=== PATIENT | female | born 1975 | race Caucasian/White ===

== ENCOUNTER 2020-03-17 14:14 | Outpatient (CLI) | payer OTHER ==
--- NOTE | 2020-03-17 16:06 | MRI ---
Exam: MRI cervical spine without contrast HISTORY: Cervical radiculitis. Right arm pain.. COMPARISON: None FINDINGS: Appropriate T1 marrow signal intensity of the cervical vertebra. Cervical spine vertebral body heigh t is maintained. No fracture. No significant STIR hyperintensity to suggest vertebral body edema or ligamentous injury. Visualized brain parenchyma, cervicomedullary junction, cervical cord and the upp er thoracic cord have normal size and signal intensity C2-C3: No significant central canal stenosis or significant neural foraminal narrowing C3-C4: No significant central canal stenosis or significant neural foraminal narrowing C4-C5: Minimal broad-based disc bulge contacts the thecal sac. No significant central canal stenosis or significant neural foraminal narrowing C5-C6: No significant central canal stenosis or significant neural foraminal narrowing C6-C7: Broad-based disc bulge minimally indents the thecal sac. No significant central canal stenosis or significant neural foraminal narrowing C7-T1: No significant central canal stenosis or significant neural foraminal narrowing IMPRESSION: No significant central canal stenosis or significant neural foraminal narrowing
== END 2020-03-17 14:15 | disposition home or self-care (01) ==
LOC: BICMRI 14:14
PROVIDERS: ATTEND Orthopaedic Surgery Hand Surgery
DX: M54.12 Radiculopathy, cervical region (principal); M48.02 Spinal stenosis, cervical region
CPT/HCPCS: 72141

== ENCOUNTER 2020-10-25 14:43 | Outpatient (CLI) | payer OTHER ==
--- NOTE | 2020-10-25 16:39 | ULT ---
LEFT BREAST ULTRASOUND: History: Follow up nodule seen on outside mammogram dated 10-19-2020. FINDINGS: There is somewhat nodular density demonstrated in the 12 o'clock position on prior outside mammogram dated 10-19-2020. When this mammogram is compared to a prior mammogram dated 08-13-2019 from [facility], however, this asymmetric density appears stable. The 12 o'clock region of the left breast is evaluated. There is some minimal asymmetric echogenic gra nular tissue in this region of the breast which may well account for the mammographic finding. There is no evidence for solid or cystic mass in this region of the breast. BIRADS category 3 - probably benign finding. No ultrasound evidence for solid or cystic mass noted in the 12 o'clock position of the left breast to account for focal asymmetry seen the prior mammogram o f 10-19-2020. The 2D image from 10-19-2020 does not appear significantly changed when compared to the 2D image from 08-13-19 in this region of the breast, so this is stable but since there is some slight differences i n appearance from the prior study, probably related to technique, a 6 month follow up study is recomm ended to include left unilateral diagnostic mammogram and left breast ultrasound for further assessme nt. POS: OFF
== END 2020-10-25 14:44 | disposition home or self-care (01) ==
LOC: BICULT 14:43
PROVIDERS: ATTEND Physician Assistant
DX: N63.20 Unspecified lump in the left breast, unspecified quadrant (principal)

== ENCOUNTER 2021-02-08 16:29 | Outpatient (CLI) | payer OTHER ==
[2021-02-08 17:51] LABS: #Basophils 0.1 10x3/uL (0.0-0.2); #Eosinphils 0.1 10x3/uL (0.0-0.5); #Monocytes 1.1 10x3/uL (0.0-1.1); #Neutrophils 5.7 10x3/uL (1.5-8.4); %Basophils 0.5 % (0.0-2.0); %Eosinophils 1.2 % (0.0-6.0); %Monocytes 10.9 % (0.0-10.0); %Neutrophils 57.1 % (40.0-75.0); Hemoglobin 12.6 g/dL (12.0-15.5); Mean Corpuscular HGB CONC 33.2 g/dL (32.0-36.0); Mean Corpuscular Hemoglobin 30.4 pg (27.0-33.0); Mean Corpuscular Volume 91.3 fl (81.6-98.3); Mean Platelet Volume 11.3 fl (7.4-10.4); Platelet Count 295 10x3/uL (150-450); RBC Distribution Width 12.6 % (11.5-14.5); Red Blood Cell (RBC) Count 4.15 10x6/uL (3.90-5.03)
[2021-02-09 00:55] LABS: SARS-CoV-2 PCR by NAA Not Detected (NotDetected)
== END 2021-02-08 16:30 | disposition home or self-care (01) ==
LOC: LABBT 16:29
PROVIDERS: ATTEND Orthopaedic Surgery Hand Surgery
DX: Z01.812 Encounter for preprocedural laboratory examination (principal); G56.01 Carpal tunnel syndrome, right upper limb; M65.311 Trigger thumb, right thumb
CPT/HCPCS: 85025; 87635; U0003; U0005

== ENCOUNTER 2021-02-11 06:26 | Day surgery (SDC) | payer OTHER ==
[2021-02-09 15:27] VITALS: BMI 24.1
[2021-02-11] MEDS ORDERED: Midazolam HCl 2 mg/2 ml Vial ONE (08:04)
[2021-02-11] MEDS ORDERED: Fentanyl 100 MCG/2 ML VIAL ONE (08:04)
[2021-02-11] MEDS ORDERED: Bupivacaine PF 0.5% 30 ML VIAL ONE (08:09)
[2021-02-11] MEDS ORDERED: Betamet Acet/Betamet Na Ph 30 MG/5 ML VIAL ONE (08:09)
[2021-02-11] MEDS ORDERED: Bacitracin Zinc Ointment 30 gm TUBE ONE (08:09)
[2021-02-11] MEDS ORDERED: Sodium Chloride 0.9% 10 ML ONE (08:16)
[2021-02-11] MEDS ORDERED: Lidocaine 1% PF 5 ML VIAL ONE (08:29)
[2021-02-11] MEDS ORDERED: PROPOFOL 200 MG/20 ML VIAL ONE (08:29)
[2021-02-11] MEDS ORDERED: Ondansetron PF 4 MG/2 ML Vial ONE (08:29)
[2021-02-11] MEDS ORDERED: Dexamethasone 20 MG/5 ML VIAL ONE (08:29)
[2021-02-11] MEDS ORDERED: Ketorolac Tromethamine 30 MG/ML VIAL ONE (09:38)
== END 2021-02-11 12:06 | disposition home or self-care (01) ==
LOC: SDC 06:26
PROVIDERS: ATTEND Orthopaedic Surgery Hand Surgery
PROC: 0LN70ZZ Release Right Hand Tendon, Open Approach (ICD-10-PCS; principal; 2021-02-11)
PROC: 01N50ZZ Release Median Nerve, Open Approach (ICD-10-PCS; principal; 2021-02-11)
DX: G56.01 Carpal tunnel syndrome, right upper limb (principal); M65.311 Trigger thumb, right thumb; M18.11 Unilateral primary osteoarthritis of first carpometacarpal joint, right hand; E03.9 Hypothyroidism, unspecified; Z79.899 Other long term (current) drug therapy
CPT/HCPCS: J0690; J0702; J1100; J1885; J2250; J2405; J2704; J3010; J3490; S0020

== ENCOUNTER 2021-04-06 08:16 | Outpatient (CLI) | payer OTHER | END 2021-04-06 08:17 | disposition home or self-care (01) | LOC: BICMAMMO 08:16 | PROVIDERS: ATTEND Obstetrics & Gynecology | DX: R92.8 Other abnormal and inconclusive findings on diagnostic imaging of breast (principal) | CPT/HCPCS: G0279 ==

== ENCOUNTER 2022-04-07 12:43 | Outpatient (CLI) | payer BC | END 2022-04-07 12:44 | disposition home or self-care (01) | LOC: BICMAMMO 12:43 | PROVIDERS: ATTEND Physician Assistant | DX: Z12.31 Encounter for screening mammogram for malignant neoplasm of breast (principal); Z85.820 Personal history of malignant melanoma of skin | CPT/HCPCS: 77063; 77067 ==

== ENCOUNTER 2022-04-27 14:20 | Outpatient (CLI) | payer BC ==
[2022-04-27] MEDS ORDERED: Magnevist 469MG/ML 20 ML VIAL ONE (16:12)
== END 2022-04-27 14:21 | disposition home or self-care (01) ==
LOC: MRI 14:20
PROVIDERS: ATTEND Orthopaedic Surgery Hand Surgery
DX: M67.40 Ganglion, unspecified site (principal); R60.0 Localized edema
CPT/HCPCS: A9579

== ENCOUNTER 2024-06-26 08:02 | Outpatient (CLI) | payer BC | END 2024-06-26 08:03 | disposition home or self-care (01) | LOC: BICMAMMO 08:02 | PROVIDERS: ATTEND Student in an Organized Health Care Education/Training Program | DX: R92.8 Other abnormal and inconclusive findings on diagnostic imaging of breast (principal); N64.89 Other specified disorders of breast | CPT/HCPCS: 77066; G0279 ==